=== PATIENT | male | born 1965 | race Caucasian/White ===

== ENCOUNTER 2018-09-04 20:12 | Emergency (ER) | payer SELFPAY ==
[~2018-09-04] VITALS: Ht 182.9 cm; Wt 90.7 kg
== END 2018-09-04 21:04 | disposition home or self-care (01) ==
LOC: ER 20:12
DX: L02.811 Cutaneous abscess of head [any part, except face] (principal)
CPT/HCPCS: 99282

== ENCOUNTER 2018-09-06 21:35 | Emergency (ER) | payer SELFPAY ==
[~2018-09-06] VITALS: Ht 182.9 cm; Wt 90.7 kg
[2018-09-06] MEDS ORDERED: HYDROCODONE/APAP 10MG-325MG TAB PO ONE (23:45)
[2018-09-06] MEDS ORDERED: LIDOCAINE 1% W/EPINEPHRINE 20 ML VIAL INJ ONE (23:45)
--- NOTE | 2018-09-07 00:10 | NUR ---
ER MD AT BEDSIDE, WOUND CLEANSED BY ER MD WITH SNS AND BETADINE, PT TOLERATED WELL
[2018-09-07] MEDS ORDERED: BACTRIM DS TAB1 EACH PO (00:26)
[2018-09-07 01:35] VITALS: BP 152/94
== END 2018-09-07 00:45 | disposition home or self-care (01) ==
LOC: ER 21:35
DX: L02.811 Cutaneous abscess of head [any part, except face] (principal); F17.210 Nicotine dependence, cigarettes, uncomplicated
CPT/HCPCS: 10061; 99283

== ENCOUNTER 2024-11-28 17:29 | Emergency (ER) | payer OTHER ==
[~2024-11-28] VITALS: Ht 182.9 cm; Wt 90.7 kg
[~2024-11-28 17:29] MED LIST: BACTRIM DS TAB1 EACH PO
[2024-11-28] MEDS ORDERED: DOXYCYCLINE HY100 MG PO (18:40)
[2024-11-28 19:00] VITALS: PULSE 100; RESP 17; TEMP 98.4; O2SAT 99
== END 2024-11-28 19:05 | disposition home or self-care (01) ==
LOC: ER 18:40
DX: L03.116 Cellulitis of left lower limb (principal); Y93.H2 Activity, gardening and landscaping
CPT/HCPCS: 99282